=== PATIENT | male | born 1990 | race Caucasian/White ===

== ENCOUNTER → 2018-01-13 | Outpatient (CLI) | payer OTHER | LOC: COL.RAD 08:12 | DX: S83.211A Bucket-handle tear of medial meniscus, current injury, right knee, initial encounter (principal); M25.461 Effusion, right knee ==

== ENCOUNTER 2018-01-26 13:35 | Outpatient (RCR) | payer OTHER | END 2018-01-26 16:00 | disposition home or self-care (01) | LOC: WSC 13:35 | DX: Z01.818 Encounter for other preprocedural examination (principal) ==

== ENCOUNTER 2018-02-27 12:30 | Outpatient (RCR) | payer OTHER | END 2018-03-24 12:43 | disposition home or self-care (01) | LOC: WSC 12:30 | DX: S83.211D Bucket-handle tear of medial meniscus, current injury, right knee, subsequent encounter (principal); X58.XXXD Exposure to other specified factors, subsequent encounter ==